=== PATIENT | female | born 1985 | race Caucasian/White ===

== ENCOUNTER 2016-10-02 11:20 | Emergency (ER) | payer OTHER ==
--- NOTE | 2016-10-02 12:05 | EDPHY ---
H & P Stated Complaint: HEMATAEMESIS SUN EVENING, DARK/BRIGHT/"COFFEE GROUNDS" Time Seen by Provider: 10/02/16 11:38 HPI/ROS: CHIEF COMPLAINT: Hematemesis HISTORY OF PRESENT ILLNESS: The patient presents to the ED after an episode of scant hematemesis that occurred 2 days ago. The patient reported that she had vomiting throughout the day which she attributed to possibly eating some bad chili. The patient did developed several mild episodes of hematemesis. She reports less than a tsp of bright red blood with vomit. She has not had any recurrent vomiting or hematemesis since that time. Additionally she has not had melena. She denies any acute abdominal pain. She denies additional complaints. REVIEW OF SYSTEMS: A comprehensive 10 point review of systems is otherwise negative aside from elements mentioned in the history of present illness. Source: Patient Exam Limitations: No limitations - Personal History LMP (Females 10-55): 1-7 Days Ago Current Tetanus/Diphtheria Vaccine: Yes Current Tetanus Diphtheria and Acellular Pertussis (TDAP): Yes - Medical/Surgical History Hx Asthma: No Hx Chronic Respiratory Disease: No Hx Diabetes: No Hx Cardiac Disease: No Hx Renal Disease: No Hx Cirrhosis: No Hx Alcoholism: No Hx HIV/AIDS: No Hx Splenectomy or Spleen Trauma: No Other PMH: DENIES - Social History Smoking Status: Never smoked - Physical Exam Exam: General Appearance: Alert, no distress Eyes: Pupils equal and round no pallor or injection ENT, Mouth: Mucous membranes moist Respiratory: There are no retractions, lungs are clear to auscultation Cardiovascular: Regular rate and rhythm Gastrointestinal: Abdomen is soft and nontender, no masses, bowel sounds normal Neurological: A&O, normal motor function, normal sensory exam, normal cranial nerves Skin: Warm and dry, no rashes Musculoskeletal: Neck is supple nontender Extremities: symmetrical, full range of motion Constitutional: Initial Vital Signs Temperature (C) 36.5 C 10/02/16 11:21 Heart Rate 78 10/02/16 11:21 Respiratory Rate 16 10/02/16 11:21 Blood Pressure 203/172 H 10/02/16 11:21 O2 Sat (%) 98 10/02/16 11:21 O2 Delivery Mode Room Air Allergies/Adverse Reactions: No Known Allergies Allergy (Unverified 10/02/16 11:22) Home Medications: Medication Instructions Recorded Control 10/02/16 Ranitidine HCl 150 mg PO BID #28 tablet 10/02/16 Medical Decision Making ED Course/Re-evaluation: The patient presents to the ED after a likely resolve Teodora-Christensen tear. The patient is noted to be hemodynamically stable with a normal hematocrit. She has no complaints of pain, no reports of melena and has had no recurrent vomiting. At this point time I do feel the patient can safely be discharged home and return to the ED for any worsening symptoms. Patient has been told to use ranitidine twice daily for the next 10 days. Differential Diagnosis: Differential diagnosis considered includes gastritis, Teodora-Christensen tear, peptic ulcer disease, critical anemia - Data Points Laboratory Results: Laboratory Results 10/02/16 12:10 10/02/16 12:10 10/02/16 12:10 WBC 4.01 10^3/uL (3.80-9.50) RBC 4.27 10^6/uL (4.18-5.33) Hgb 13.4 g/dL (12.6-16.3) Hct 39.2 % (38.0-47.0) MCV 91.8 fL (81.5-99.8) MCH 31.4 pg (27.9-34.1) MCHC 34.2 g/dL (32.4-36.7) RDW 12.6 % (11.5-15.2) Plt Count 232 10^3/uL (150-400) MPV 10.7 fL (8.7-11.7) Neut % (Auto) 58.5 % (39.3-74.2) Lymph % (Auto) 28.4 % (15.0-45.0) [place] % (Auto) 10.7 % (4.5-13.0) Eos % (Auto) 1.7 % (0.6-7.6) Baso % (Auto) 0.5 % (0.3-1.7) Nucleat RBC Rel Count 0.0 % (0.0-0.2) Absolute Neuts (auto) 2.34 10^3/uL (1.70-6.50) Absolute Lymphs (auto) 1.14 10^3/uL (1.00-3.00) Absolute Monos (auto) 0.43 10^3/uL (0.30-0.80) Absolute Eos (auto) 0.07 10^3/uL (0.03-0.40) Absolute Basos (auto) 0.02 10^3/uL (0.02-0.10) Absolute Nucleated RBC 0.00 10^3/uL (0-0.01) Immature Gran % 0.2 % (0.0-1.1) Immature Gran # 0.01 10^3/uL (0.00-0.10) Sodium 140 mEq/L (134-144) Potassium 3.6 mEq/L (3.5-5.2) Chloride 102 mEq/L (97-110) Carbon Dioxide 28 mEq/l (22-31) Anion Gap 10 mEq/L (8-16) BUN 8 mg/dL (7-23) Creatinine 0.7 mg/dL (0.6-1.0) Estimated GFR > 60 Glucose 99 mg/dL (70-100) Calcium 8.8 mg/dL (8.5-10.4) Beta HCG, Qual NEGATIVE Departure - Departure Disposition: Home, Routine, Self-Care Clinical Impression: Teodora-Christensen tear, Vomiting Condition: Good Instructions: Acute Nausea and Vomiting (ED) Additional Instructions: 1. Please use ranitidine 150 mg twice daily for the next 10 days. 2. Please return to the ED for recurrent vomiting, black or tarry stools, abdominal pain or other concerns. 3. Please avoid medications such as Aleve, ibuprofen and Motrin for the next 2 weeks. Please avoid caffeine and alcohol for the next week. 4. You have been given the contact number of our on-call optimization consultant if you continue to have any additional GI problems. Referrals: Yamil Mcmanus MD [Medical Doctor] - As per Instructions
[2016-10-02 12:19] VITALS: TEMP 97.9
[2016-10-02 12:19] LABS: % IMMATURE GRANULYOCYTES 0.2 % (0.0-1.1); ABSOLUTE IMMATURE GRANULOCYTES 0.01 10^3/uL (0.00-0.10); ADD DIFF? NO; ADD MORPH? NO; ADD SCAN? NO; ATYPICAL LYMPHOCYTE FLAG 40 (0-99); FRAGMENT RBC FLAG 0 (0-99); HEMATOCRIT 39.2 % (38.0-47.0); HEMOGLOBIN 13.4 g/dL (12.6-16.3); LEFT SHIFT FLG 0 (0-99); LIPEMIA HEMOLYSIS FLAG 90 (0-99); MEAN CELL HEMOGLOBIN 31.4 pg (27.9-34.1); MEAN CELL HEMOGLOBIN CONCENTR. 34.2 g/dL (32.4-36.7); MEAN CELL VOLUME 91.8 fL (81.5-99.8); MEAN PLATELET VOLUME 10.7 fL (8.7-11.7); PLATELET CLUMPS FLAG 0 (0-99); PLATELET COUNT 232 10^3/uL (150-400); RED BLOOD CELL COUNT 4.27 10^6/uL (4.18-5.33); RED CELL DISTRIBUTION WIDTH 12.6 % (11.5-15.2)
[2016-10-02 12:44] LABS: ANION GAP 10 mEq/L (8-16); CALCIUM 8.8 mg/dL (8.5-10.4); CARBON DIOXIDE 28 mEq/l (22-31); CHLORIDE 102 mEq/L (97-110); CREATININE 0.7 mg/dL (0.6-1.0); GLOMERULAR FILTRATION RATE > 60; GLUCOSE 99 mg/dL (70-100); POTASSIUM 3.6 mEq/L (3.5-5.2); SODIUM 140 mEq/L (134-144)
[2016-10-02 13:25] VITALS: BP 119/74; PULSE 76; RESP 16; O2SAT 99
== END 2016-10-02 13:24 | disposition home or self-care (01) ==
DX: K22.6 Gastro-esophageal laceration-hemorrhage syndrome (principal); R11.10 Vomiting, unspecified

== ENCOUNTER → 2017-04-04 | Outpatient (CLI) | payer OTHER | LOC: FIMAGING 09:39 | PROVIDERS: ATTEND Physician Assistant Medical | DX: M25.551 Pain in right hip (principal) ==